=== PATIENT | female | born 1960 | race Caucasian/White ===

== ENCOUNTER → 2023-08-19 | Outpatient (CLI) | payer OTHER ==
[~2023-08-19] MED LIST: ALLEGRA ALLERGY60 MG PO; CONEST.625 PO
== END ==
LOC: LAB SHORT 08:50 → LAB 08:50
DX: R35.0 Frequency of micturition (principal); R39.15 Urgency of urination; R10.84 Generalized abdominal pain; M54.50 Low back pain, unspecified
CPT/HCPCS: 87086